=== PATIENT | female | born 1985 | race Two or more races ===

== ENCOUNTER 2020-04-28 16:06 | Outpatient (REF) | payer MEDICAID, SELFPAY ==
[2020-04-29 09:26] LABS: CT PCR NOT DETECTED (Not Detect.); NG PCR NOT DETECTED (Not Detect.)
[2020-04-29 10:34] LABS: BV Int Neg Control Negative (Negative); BV Int Pos Control Positive (Positive)
[2020-05-04 18:17] LABS: HPV mRNA E6/E7 rflx Not Detected (Not Detected)
== END 2020-04-28 16:07 | disposition home or self-care (01) ==
LOC: HO.LAB 16:06
PROVIDERS: PCP Nurse Practitioner Family; Referring Provider Nurse Practitioner Family; Visit Provider Advanced Practice Midwife
DX: Z01.419 Encounter for gynecological examination (general) (routine) without abnormal findings (principal); Z20.2 Contact with and (suspected) exposure to infections with a predominantly sexual mode of transmission; R10.2 Pelvic and perineal pain
CPT/HCPCS: 87480; 87491; 87510; 87591; 87624; 87625; 87660; 88142

== ENCOUNTER 2020-05-09 13:54 | Outpatient (REF) | payer MEDICAID, SELFPAY ==
--- NOTE | 2020-05-09 13:57 | US_ITS ---
EXAMINATION: PELVIC ULTRASOUND CLINICAL INFORMATION: Pelvic and peroneal pain COMPARISON: Previous pelvic ultrasound March 2016 TECHNIQUE: Transabdominal and transvaginal pelvic ultrasound was performed. Transvaginal exam was performed for better visualization of the uterus and ovaries. FINDINGS: The uterus is anteverted and measures 9.1 x 3.8 x 5.9 cm in dimension. No focal uterine lesion is seen. There is an IUD in the uterus in satisfactory position. The endometrium does not appear thickened measuring 0.3 cm. The right ovary measures 3 x 1.2 x 2.1 cm. There is a 1.3 x 1 x 1.7 cm thick-walled right ovarian cyst probably representing a corpus luteum. The left ovary measures 1.9 x 1.3 x 2.2 cm. There is a 1.4 x 0.7 x 1.1 cm paraovarian or adnexal simple cyst. There is a small amount of fluid in the pelvis. US/US transvaginal IMPRESSION: IUD in the uterus in satisfactory position. Small bilateral ovarian cysts. Small amount of fluid in the pelvis.
--- NOTE | 2020-05-09 13:57 | US_ITS ---
EXAMINATION: PELVIC ULTRASOUND CLINICAL INFORMATION: Pelvic and peroneal pain COMPARISON: Previous pelvic ultrasound March 2016 TECHNIQUE: Transabdominal and transvaginal pelvic ultrasound was performed. Transvaginal exam was performed for better visualization of the uterus and ovaries. FINDINGS: The uterus is anteverted and measures 9.1 x 3.8 x 5.9 cm in dimension. No focal uterine lesion is seen. There is an IUD in the uterus in satisfactory position. The endometrium does not appear thickened measuring 0.3 cm. The right ovary measures 3 x 1.2 x 2.1 cm. There is a 1.3 x 1 x 1.7 cm thick-walled right ovarian cyst probably representing a corpus luteum. The left ovary measures 1.9 x 1.3 x 2.2 cm. There is a 1.4 x 0.7 x 1.1 cm paraovarian or adnexal simple cyst. There is a small amount of fluid in the pelvis. US/US pelvic complete IMPRESSION: IUD in the uterus in satisfactory position. Small bilateral ovarian cysts. Small amount of fluid in the pelvis.
== END 2020-05-09 13:55 | disposition home or self-care (01) ==
LOC: HO.US 13:54
PROVIDERS: PCP Nurse Practitioner Family; Visit Provider Advanced Practice Midwife
DX: R10.2 Pelvic and perineal pain (principal)
CPT/HCPCS: 76830; 76856

== ENCOUNTER → 2020-05-12 12:47 | Outpatient (BNVA) | payer MEDICAID, SELFPAY | PROVIDERS: PCP Nurse Practitioner Family; Visit Provider Advanced Practice Midwife | DX: Z76.89 Persons encountering health services in other specified circumstances (principal) ==

== ENCOUNTER → 2021-06-29 10:50 | Outpatient (BNVA) | payer MEDICAID, SELFPAY | PROVIDERS: Visit Provider Surgery | DX: K60.2 Anal fissure, unspecified (principal); K64.4 Residual hemorrhoidal skin tags | CPT/HCPCS: 99202 ==

== ENCOUNTER 2021-07-28 09:28 | Day surgery (SDC) | payer MEDICAID, SELFPAY ==
[2021-07-24 10:58] VITALS: BMI 38.7
--- NOTE | 2021-07-26 12:35 | HO.ANESPROP2 ---
Documented by User: Sue Harman NP 07/26/21 12:35 HPI - Anesthesia Eval Consult details Narrative: 36yo F for EUA, Lateral Internal Sphincterotomy, Possible Hemorrhoidectomy [facility] Active Problems Active Problems: All Active Problems (Updated 07/24/21 @ 10:57 by Gabbi Solis, RN) Pelvic pain (Acute) Well woman exam with routine gynecological exam (Acute) Potential exposure to STD (Acute) Ovarian cyst (Acute) External hemorrhoids (Acute) Anal fissure (Acute) Obesity (Acute) Past Medical History Medical History (Updated 07/24/21 @ 10:57 by Gabbi Solis RN) Anal fissure External hemorrhoids History of depression History of gestational diabetes Obesity Family History Family History Father Poliazra Colon cancer Surgical History Surgical History (Updated 07/24/21 @ 10:57 by Gabbi Solis RN) History of surgery Hx of colonoscopy Social History Social History Alcohol intake: never Patient Tobacco Use Status: Former Tobacco user Quit Date: age 21 Patient Interested in Nicotine Replacement: No Use of substances other than those prescribed or required for medical reasons: No Are you DNR?: No Advance Directives: No Advance Directives Information Provided: Yes Gender identity: Female Meds Allergies Allergy/AdvReac Type Severity Reaction Status Date / Time No Known Allergies Allergy Unknown Verified 07/24/21 10:57 Home Medications Medication Instructions Recorded Confirmed Last Taken Type No Known Home Meds 05/12/20 07/24/21 Unknown History Exam Exam Date and Time: July 26, 2021 1235 Height,Weight and Vital Signs: Height 5 ft 4 in Weight 102.512 kg Assessment and Plan Assessment Anesthesia Assessment: Chart Reviewed Documented by User: Yvrose Casper MD 07/28/21 10:02 [facility] Past Medical History Medical History (Updated 07/24/21 @ 10:57 by Gabbi Solis RN) Anal fissure External hemorrhoids History of depression History of gestational diabetes Obesity Family History Family History Father Polio Colon cancer Family history of problems with anesthesia: No Surgical History Surgical History (Updated 07/24/21 @ 10:57 by Gabbi Solis RN) History of surgery Hx of colonoscopy History of Problems with Anesthesia: No Social History Social History Alcohol intake: never Patient Tobacco Use Status: Former Tobacco user Quit Date: age 21 Patient Interested in Nicotine Replacement: No Use of substances other than those prescribed or required for medical reasons: No Are you DNR?: No Advance Directives: No Advance Directives Information Provided: Yes Gender identity: Female Meds Allergies Allergy/AdvReac Type Severity Reaction Status Date / Time No Known Allergies Allergy Unknown Verified 07/24/21 10:57 Home Medications Medication Instructions Recorded Confirmed Last Taken Type No Known Home Meds 05/12/20 07/24/21 Unknown History Exam Airway Mallampati Class: II (Caps lateral) TM Dist: >3cm Neck ROM: Full Heart: rrr Lungs: cta Assessment and Plan Assessment Anesthesia Assessment: Anesthesia Plan Discussed and Chart Reviewed Final Anesthetic Review Family History of Problems with Anesthesia: No History of Problems with Anesthesia: No NPO: Yes ASA Class: II Final Preanesthetic Review: No Changes in Pt Med Stat, Meds/Allgs Chart Reviewed and Consent Obtained/Reviewed Patient Risk: Intermediate Procedure Risk: Intermediate Anesthetic Plan Anesthetic Plan: GA Disposition: Standard PACU
[2021-07-28] VITALS (11 sets, daily range): BP systolic 115–147; BP diastolic 57–82; PULSE 53–122; RESP 16–20; TEMP 36.3–36.6; O2SAT 95–100
--- NOTE | 2021-07-28 10:06 | MHC.SHP ---
Pre-Procedural Eval Section A Date of Service: 07/28/21 The patient is an INPATIENT: No Changes since office visit: No Cold of Flu in the past 2 weeks, No New Medical Problems, No Changes in Medication and No Patient answered all questions The History & Physical has been completed within 30 days and I have reviewed it.: Yes Section B Chief Complaint: Anal Fissure Allergies: Allergies Allergy/AdvReac Type Severity Reaction Status Date / Time No Known Allergies Allergy Unknown Verified 07/24/21 10:57 Plan I have reviewed the history and physical and performed a pertinent physical examination on my patient. No changes have occurred unless specified.
--- NOTE | 2021-07-28 10:32 | PC.NURSE ---
Patient unable to urinate for HCG preg test. Patient denies any chance of , I just got off my period Anesthesia at bedside explaining risks to proceeding with procedure under anesthesia to unborn fetus should she be . Patient fully understands and wants to proceed with procedure under general anesthesia without results of urine HCG preg- patient and Dr Casper signed consent for understanding of risks.
--- NOTE | 2021-07-28 11:25 | P.OP_ITS ---
Operative Note Operative Note Date of Service: 07/28/21 Narrative: Preop diagnosis: Anal fissure, external hemorrhoids Postop diagnosis: Anal fissure, large external hemorrhoids Procedure: Exam under anesthesia, left lateral internal sphincterotomy, hemorrhoidectomy x1 Surgeon: Dangelo Engel MD The patient is a 36 year old female who had been seen in the office because of chronic anal pain. Overall clinical exam suggested a posterior midline fissure but she did have large bulky external hemorrhoids as well . In view of her chronic and severe symptoms, I told her that would be best to proceed with exam under anesthesia, sphincterotomy, and possibly hemorrhoidectomy. She understood the technique of the procedure and was aware of the risks, benefits, and alternatives. She was brought to the operating room placed in prone rodney-knife position under general anesthesia via endotracheal tube. The buttocks were retracted with wide tape laterally. The perianal area was prepped draped usual sterile fashion. A surgical time-out was done. Area was infiltrated with lidocaine 1% Examination of the anal orifice revealed all large external hemorrhoidal column on the right posterior. By retraction of the anal canal I was able to visualize an anal fissure in the posterior midline and the distal anoderm . Inserted abuse Larose retractor and examined the anal canal circumferentially. She did have other smaller mixed internal and external hemorrhoidal columns. There were no lesions seen. In view of the presence of anal fissure, proceeded to do a sphincterotomy. I made a very short incision at the intersphincteric groove using a blade 15. This carried down with blunt dissection with hemostat to identify the external sphincter muscle. I isolated this and identified the intersphincteric plane. By protecting external sphincter, I proceeded to then divide the internal sphincter down to the level of the dentate line using electrocautery. I closed the incision with a running chromic 3-0 stitch. Additional hemostatic deoftc-bb-hlwze sutures were placed for the incision in view of some oozing I then proceeded to excise the large external hemorrhoid on the posterior aspect on the left. I made a wjereb-hr-[id number] stitch at the apex of this hemorrhoidal column at the anoderm with a chromic 3-0. Made an incision or the hemorrhoidal column the perianal skin using blade 15. And excised this hemorrhoidal column above the plane of sphincters using Metzenbaum scissors. I closed the incision with a running chromic 3-0 stitch. I had to place additional hemostatic sutures along the incision because of oozing. I observed for hemostasis. I infiltrated the perianal area with Marcaine 0.5% for postop analgesia. There was some oozing areas on the incision so I had to place additional hemostatic sutures. Once hemostasis was ensured, proceeded to position a rolled Gelfoam packing into the anal canal for additional hemostasis postoperatively . The procedure was then completed. The patient tolerated procedure well. There were no complication noted. Initial and finalcounts of sponges and instruments were correct. Estimated blood loss was about 50 cc The patient is extubated without difficulty and transferred to recovery room w ith stable vital signs.
[2021-07-28] MEDS: fentaNYL citrate/PF 100 MCG/2 ML VIAL 50 MCG IVPUSH ×2 (11:37→11:44)
[2021-07-28] MEDS: oxyCODONE HCl Immed Release 5 MG TABLET 10 MG PO (11:37)
== END 2021-07-28 13:05 | disposition home or self-care (01) ==
PROVIDERS: Visit Provider Surgery
PROC: (CPT 46080; principal; 2021-07-28 11:00)
DX: K60.2 Anal fissure, unspecified (principal); K64.4 Residual hemorrhoidal skin tags
CPT/HCPCS: 46080; 88304; J1100; J1885; J2250; J2405; J2550; J3010

== ENCOUNTER → 2022-05-17 12:59 | Outpatient (BNVA) | payer MEDICAID, SELFPAY | PROVIDERS: PCP Registered Nurse; Visit Provider Advanced Practice Midwife | DX: Z87.42 Personal history of other diseases of the female genital tract (principal); Z97.5 Presence of (intrauterine) contraceptive device | CPT/HCPCS: 99202 ==

== ENCOUNTER 2022-06-21 14:03 | Outpatient (REF) | payer MEDICAID, SELFPAY ==
--- NOTE | ~2022-06-21 | US_ITS ---
EXAMINATION: US PELVIS CLINICAL INFORMATION: Abnormal Pap smear and bleeding COMPARISON: Previous exam May 2020 TECHNIQUE: Ultrasound of the pelvis is performed using both transabdominal and transvaginal transducers along with Doppler. Transvaginal imaging is performed due to inadequate visualization transabdominally. FINDINGS: The uterus is anteverted and measures 6.9 x 3.7 x 6.1 cm in dimension. There is an IUD in the uterus in satisfactory position. Endometrial thickness is normal measuring 0.3 cm. No focal uterine lesion. The ovaries are normal. The right ovary measures 1.9 x 1.4 x 1.1 cm. The left ovary measures 2.1 x 1.2 x 0.8 cm. There is no fluid in the pelvis. US/US pelvic and transvaginal IMPRESSION: IUD in the uterus in satisfactory position. Otherwise unremarkable exam.
== END 2022-06-21 14:04 | disposition home or self-care (01) ==
LOC: HO.US 14:03
PROVIDERS: Visit Provider Advanced Practice Midwife
DX: Z97.5 Presence of (intrauterine) contraceptive device (principal); Z87.42 Personal history of other diseases of the female genital tract
CPT/HCPCS: 76830; 76856

== ENCOUNTER → 2022-06-29 14:35 | Outpatient (BNVA) | payer MEDICAID, SELFPAY | PROVIDERS: PCP Registered Nurse; Visit Provider Internal Medicine | DX: Q14.1 Congenital malformation of retina (principal); Z80.0 Family history of malignant neoplasm of digestive organs | CPT/HCPCS: 99202 ==

== ENCOUNTER → 2022-07-05 08:59 | Outpatient (BNVA) | payer MEDICAID, SELFPAY | PROVIDERS: PCP Registered Nurse; Visit Provider Advanced Practice Midwife | DX: Z87.42 Personal history of other diseases of the female genital tract (principal); Z97.5 Presence of (intrauterine) contraceptive device | CPT/HCPCS: 99212 ==

== ENCOUNTER 2022-11-23 06:59 | Day surgery (SDC) | payer MEDICAID, SELFPAY ==
[2022-11-21 08:41] VITALS: BMI 36.4
--- NOTE | 2022-11-22 11:47 | HO.ANESPROP2 ---
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) Family history of colon cancer (Acute) History of surgery (Acute) External hemorrhoids (Acute) Anal fissure (Acute) Obesity (Acute) Past Medical History Medical History (Updated 07/05/22 @ 09:49 by Alyssa Wayne CNM) Anal fissure External hemorrhoids History of depression History of gestational diabetes Obesity Family History Family History Father Poliazra Colon cancer Family history of problems with anesthesia: No Surgical History Surgical History (Updated 11/21/22 @ 08:39 by Jessica Woo RN) History of surgery Hx of colonoscopy Hx of hemorrhoidectomy History of Problems with Anesthesia: No Social History Social History Alcohol intake: never Patient Tobacco Use Status: Former Tobacco user Quit Date: age 21 Tobacco use type: Cigarette Use of substances other than those prescribed or required for medical reasons: No Are you DNR?: No Advance Directives: No Advance Directives Information Provided: Yes Gender identity: Female Meds Allergies Allergy/AdvReac Type Severity Reaction Status Date / Time No Known Allergies Allergy Unknown Verified 11/23/22 07:10 Home Medications Medication Instructions Recorded Confirmed Last Taken Type copper 380 square mm intrauterine intrauterine 07/05/22 07/05/22 Unknown History device (ParaGard T 380A) Exam Exam Date and Time: November 22, 2022 1147 Height,Weight and Vital Signs: Height 5 ft 4 in Weight 96.162 kg Assessment and Plan Assessment Anesthesia Assessment: Chart Reviewed Final Anesthetic Review Family History of Problems with Anesthesia: No History of Problems with Anesthesia: No Documented by User: Joy Sinclair MD 11/23/22 08:08 [facility] Past Medical History Medical History (Updated 07/05/22 @ 09:49 by Alyssa Wayne CNM) Anal fissure External hemorrhoids History of depression History of gestational diabetes Obesity Family History Family History Father Polio Colon cancer Surgical History Surgical History (Updated 11/21/22 @ 08:39 by Jessica Woo RN) History of surgery Hx of colonoscopy Hx of hemorrhoidectomy Social History Social History Alcohol intake: never Patient Tobacco Use Status: Former Tobacco user Quit Date: age 21 Tobacco use type: Cigarette Use of substances other than those prescribed or required for medical reasons: No Are you DNR?: No Advance Directives: No Advance Directives Information Provided: Yes Gender identity: Female Meds Allergies Allergy/AdvReac Type Severity Reaction Status Date / Time No Known Allergies Allergy Unknown Verified 11/23/22 07:10 Home Medications Medication Instructions Recorded Confirmed Last Taken Type copper 380 square mm intrauterine intrauterine 07/05/22 07/05/22 Unknown History device (ParaGard T 380A) Exam Airway Mallampati Class: II TM Dist: >3cm Neck ROM: Full Heart: rrr Lungs: cta Assessment and Plan Assessment Anesthesia Assessment: Anesthesia Plan Discussed Final Anesthetic Review NPO: Yes ASA Class: II Final Preanesthetic Review: No Changes in Pt Med Stat, Meds/Allgs Chart Reviewed, Consent Obtained/Reviewed and Anes Risks/Benef Reviewed Patient Risk: Low Procedure Risk: Low Anesthetic Plan Anesthetic Plan: MAC: Disposition: Standard PACU
[2022-11-23 07:13] VITALS: BMI 36.4
[2022-11-23 07:16] VITALS: BP 130/69; PULSE 52; RESP 16; TEMP 36.6; O2SAT 100
[2022-11-23] MEDS: Lactated Ringers 1,000 ML 100 ML IVCONT (07:22)
[2022-11-23 07:47] LABS: UPreg QC Valid YES; Urine Pregnancy NEGATIVE (NEGATIVE)
--- NOTE | 2022-11-23 08:45 | MHC.SHP ---
Pre-Procedural Eval Section A Date of Service: 11/23/22 Section B Chief Complaint: Family history of malignant neoplasm of digestive Details of Present Illness: Medical History Anal fissure External hemorrhoids History of depression History of gestational diabetes Obesity Surgical History History of surgery Hx of colonoscopy Family History Father Polio Colon cancer Present Medications: see Short Stay Collaborative assessment Allergies: Allergies Allergy/AdvReac Type Severity Reaction Status Date / Time No Known Allergies Allergy Unknown Verified 11/23/22 07:10 Review of Systems Review of Systems Comment: 10 point ROS negative except as above Exam Exam Comment: Gen appear: No acute distress HEENT: no icterus Chest: No overt resp distress Abd: soft, nontender, nondistended Psych: Stable affect, answering questions appropriately Neuro: A/Ox3 noted to move all extremities spontaneously Ext: no peripheral edema Plan Diagnosis/Plan: Unchanged I have reviewed the history and physical and performed a pertinent physical examination on my patient. No changes have occurred unless specified. Time Spent With Patient Time: Total time managing care of this patient today ____ minutes.
--- NOTE | 2022-11-23 08:46 | P.OP_ITS ---
Operative Note Operative Note Date of Service: 11/23/22 Narrative: Procedure: Esophagogastroduodenoscopy and colonoscopy Endoscopist: Paris Devine MD Indication: R/o polyposis syndrome, fam hx of CRC Anesthesia Provider: Dr Joy Sinclair Anesthesia Type: MAC ? Instrument: Olympus GIF-H190 and PCF-190L EGD Procedure:?? The procedure, indications, preparation and potential complications were reviewed with the patient, who indicated understanding and gave written informed consent to proceed. A physical exam was performed. A distal attachment cap was affixed to the tip of the scope and the endoscope was introduced through the mouth, and advanced to the second part of duodenum. The mucosa was carefully examined on slow withdrawal of the endoscope. The patient became hypoxic and difficult to sedate as the duodenum was being examine and therefore decision was made to complete the upper endoscopy after the colonsocopy. EGD Findings:? * Esophagus:? Normal mucosa noted in the entire esophagus. The Z line was at 37 cm. * Stomach:? Normal mucosa was noted in the stomach. * Duodenum:? Erythema and congestion was noted in the duodenal bulb compatible with peptic duodenitis. Cold forceps biopsies were taken for histology. Normal mucosa was noted in remaining examined duodenum. The major papilla was also examined and appeared normal. Colonoscopy Procedure:? The patient was then turned for the colonoscopy. A digital rectal exam was performed which was normal.? A distal attachment cap was affixed to the tip of the scope and the colonoscope was then inserted through the anus and advanced through the colon to the cecum at 75 cm,and terminal ileum.? Appendiceal orifice and ileocecal valve were identified.? Mucosa was carefully examined under high definition white light as the instrument was slowly withdrawn in a retrograde panoramic fashion. Retroflexion was performed in rectum. The procedure was not difficult. There were no immediate obvious complications. The quality of the prep was BBPS: 2+3+2 = adequate Withdrawal time 8 minutes. Limitations: No limitations.? Findings: Mucosa: Normal to cecum and terminal ileum. Protruding lesions: * Medium external hemorrhoids without stigmata of recent bleeding. Impression: 1. Normal esophagus 2. Normal stomach 3. Peptic duodenitis (biopsy) 4. Normal colon and terminal ileum mucosa 5. External hemorrhoids Recommendations:?? * Follow biopsy results. Our office will call or send a letter with results within 7-10 days. * Avoid NSAIDs and smoking. * Repeat colonoscopy in 5 years due to family hx of CRC * Follow up in GI office as scheduled. Above has been reviewed with the patient. Educational hand outs were provided at discharge.
[2022-11-23 09:50] VITALS: BP 114/77; PULSE 97; RESP 17; TEMP 36.6; O2SAT 98
[2022-11-23 10:05] VITALS: BP 141/62; PULSE 74; RESP 18; TEMP 36.4; O2SAT 98
== END 2022-11-23 10:51 | disposition home or self-care (01) ==
PROVIDERS: Nurse Practitioner; PCP Registered Nurse; Visit Provider Internal Medicine
PROC: (CPT 45378; principal; 2022-11-23 08:30)
DX: Z12.11 Encounter for screening for malignant neoplasm of colon (principal); Z80.0 Family history of malignant neoplasm of digestive organs; K29.80 Duodenitis without bleeding; K64.4 Residual hemorrhoidal skin tags; K60.2 Anal fissure, unspecified; Q14.1 Congenital malformation of retina; E66.9 Obesity, unspecified; Z68.36 Body mass index [BMI] 36.0-36.9, adult; Z98.890 Other specified postprocedural states; Z87.891 Personal history of nicotine dependence
CPT/HCPCS: 45378; 43239; 81025; 88305; J1100; J2250

== ENCOUNTER 2023-02-27 12:46 | Outpatient (REF) | payer MEDICAID, SELFPAY ==
--- NOTE | ~2023-02-27 | XR_ITS ---
EXAMINATION: XR HAND, RIGHT CLINICAL INFORMATION: Second digit trauma. COMPARISON: None available. TECHNIQUE: PA, lateral, and oblique views of the right hand. FINDINGS: There is no acute fracture or dislocation. The joint spaces are unremarkable. The carpal bones are normally aligned. The distal radius and ulna are intact. Mild soft tissue swelling is seen in the second digit. No radiopaque foreign body. XR/XR hand RT min 3V IMPRESSION: Mild soft tissue swelling in the second digit without acute underlying osseous abnormality. No radiopaque foreign body.
== END 2023-02-27 12:47 | disposition home or self-care (01) ==
LOC: HO.HHCX 12:46
PROVIDERS: Visit Provider Internal Medicine Geriatric Medicine
DX: L03.011 Cellulitis of right finger (principal); M20.001 Unspecified deformity of right finger(s)
CPT/HCPCS: 73130

== ENCOUNTER 2023-03-27 10:44 | Outpatient (REF) | payer MEDICAID, SELFPAY ==
[2023-03-29 11:39] LABS: TS Negative Control Passed; TS Panel A 0; TS Panel B 0; TS Positive Control Passed; TSpotTB Negative (Negative)
== END 2023-03-27 10:45 | disposition home or self-care (01) ==
LOC: HO.HHCL 10:44
PROVIDERS: Visit Provider Registered Nurse
DX: Z00.00 Encounter for general adult medical examination without abnormal findings (principal); Z11.1 Encounter for screening for respiratory tuberculosis
CPT/HCPCS: 36415; 86481

== ENCOUNTER 2023-04-29 11:49 | Outpatient (REF) | payer MEDICAID, SELFPAY ==
[2023-04-29 14:07] LABS: MANUAL DIFF FLAG NO
[2023-04-29 14:16] LABS: Basophils Absolute Auto 0.1 X10*3/uL (0.0-0.2); Eosinophils Absolute Auto 0.2 X10*3/uL (0.0-0.4); Eosinophils Percent Auto 2.9 % (0-4); Hematocrit 36.5 % (37.0-47.0); Imm Gran Abs Auto 0.01 X10*3/uL (0.00-0.03); Imm Gran Pct Auto 0.2 % (0.0-0.4); Lymphocytes Absolute Auto 2.3 X10*3/uL (1.2-4.9); Lymphocytes Percent Auto 39.2 % (20-40); Mean Corpuscular HGB Conc 32.9 g/dl (31.0-35.0); Mean Corpuscular Hemoglobin 27.7 pg (27.0-33.0); Mean Corpuscular Volume 84.3 fL (80.0-98.0); Monocytes Absolute Auto 0.3 X10*3/uL (0.1-1.2); Monocytes Percent Auto 4.6 % (2-11); Neutrophils Percent Auto 52.1 % (45-73); Platelet Count 245 X10*3/uL (160-400); Red Blood Count 4.33 X10*6/uL (4.20-5.50); Red Cell Distribution Width 13.8 % (11.0-16.0); White Blood Count 5.8 X10*3/uL (4.8-10.8)
[2023-04-29 14:21] LABS: Estimated Average Glucose 100 mg/dL; Hemoglobin A1c % 5.1 % (<6.0)
[2023-04-29 14:45] LABS: Alanine Aminotransferase 13 U/L (0-31); Albumin Level 4.2 g/dL (3.5-5.0); Alkaline Phosphatase 70 U/L (39-117); Anion Gap 15 (12-20); Aspartate Amino Transferase 15 U/L (5-31); Bilirubin Total 0.3 mg/dL (0.0-1.0); Blood Urea Nitrogen 12 mg/dL (9-16); Calcium 9.5 mg/dL (8.4-10.2); Carbon Dioxide 23 mmol/L (22-29); Chloride 107 mmol/L (96-108); Cholesterol 249 mg/dL (<200); Estimated Glomerular Filt Rate > 60; Glucose Fasting 83 mg/dL (60-99); HDL Cholesterol 48 mg/dL (>40); LDL Cholesterol Calculated 185 mg/dL (<100); Potassium 3.8 mmol/L (3.3-5.1); Sodium 141 mmol/L (135-145); Total Protein 7.4 g/dL (6.5-8.0); Triglycerides 84 mg/dL (<150)
[2023-04-29 14:51] LABS: TSH reflex Free T4 0.92 uIU/mL (0.32-4.0)
[2023-04-29 15:59] LABS: CT PCR NOT DETECTED (Not Detect.); NG PCR NOT DETECTED (Not Detect.)
[2023-04-30 08:16] LABS: HBc Num1 0.16 S/CO (0.00-0.79); HBsAGNum1 0.34 S/CO (0.00-0.99); HIV AB/AG Nonreactive (Nonreactive); HIV Num 1 0.04 S/CO (0.00-0.99); Hepatitis B Core Antibody Nonreactive (Nonreactive); Hepatitis B Surface Antigen Negative (Negative); ~HepC Num1 0.08 S/CO (0.00-0.79); ~Hepatitis B Surface Antibody REACTIVE (Nonreactive); ~Hepatitis C Antibody Nonreactive (Nonreactive)
[2023-05-01 05:09] LABS: Mumps Virus IgG Antibody <9.00 AU/mL; Rubella IgG Antibody <0.90 Index
[2023-05-01 08:39] LABS: RPR Rapid Plasma Reagin NON-REACTIVE (NON-REACTIVE)
== END 2023-04-29 11:50 | disposition home or self-care (01) ==
LOC: HO.CHCLDS 11:49
PROVIDERS: Visit Provider Registered Nurse
DX: Z00.00 Encounter for general adult medical examination without abnormal findings (principal)
CPT/HCPCS: 0353U; 80053; 80061; 83036; 84443; 85025; 86592; 86704; 86706; 86735; 86762; 86765; 86787; 86803; 87340; 87389

== ENCOUNTER 2024-09-02 10:10 | Outpatient (REF) | payer OTHER, SELFPAY ==
[2024-09-02 11:30] LABS: MANUAL DIFF FLAG NO
[2024-09-02 11:52] LABS: Basophils Absolute Auto 0.1 X10*3/uL (0.0-0.2); Basophils Percent Auto 0.7 % (0-2); Eosinophils Absolute Auto 0.2 X10*3/uL (0.0-0.4); Eosinophils Percent Auto 2.7 % (0-4); Hematocrit 38.3 % (37.0-47.0); Hemoglobin 12.4 g/dl (12.0-16.0); Imm Gran Abs Auto 0.01 X10*3/uL (0.00-0.03); Imm Gran Pct Auto 0.1 % (0.0-0.4); Lymphocytes Absolute Auto 2.6 X10*3/uL (1.2-4.9); Lymphocytes Percent Auto 38.9 % (20-40); Mean Corpuscular HGB Conc 32.4 g/dl (31.0-35.0); Mean Corpuscular Hemoglobin 27.6 pg (27.0-33.0); Mean Corpuscular Volume 85.3 fL (80.0-98.0); Mean Platelet Volume 11.2 fL (9.4-12.3); Monocytes Absolute Auto 0.3 X10*3/uL (0.1-1.2); Monocytes Percent Auto 5.1 % (2-11); Neutrophils Absolute Auto 3.5 x10*3/uL (2.0-8.3); Neutrophils Percent Auto 52.5 % (45-73); Platelet Count 239 X10*3/uL (160-400); Red Blood Count 4.49 X10*6/uL (4.20-5.50); Red Cell Distribution Width 13.8 % (11.0-16.0); White Blood Count 6.7 X10*3/uL (4.8-10.8)
--- OUTSIDE RECORDS SUMMARY | 2024-09-02 11:59 | XMS_ITS | Clinical Summary ---
Author Organization [employer] Address [address] [place] [address] 7[address] [place] [address] Care Team Providers Care Election Judge Name Role Phone Alexus Stoner VIDYA Primary Care Provider [phone] Allergies No known active allergies Medications Acetaminophen Extra Strength 500 MG tablet Take 2 tablets by mouth every 6 (six) hours if needed. 3 08/21/19 25 Discontinu ed(Therapy completed) loratadine (Claritin) 10 MG tablet Take 1 tablet (10 mg) by mouth in the morning. 30 tablet 3 08/21/19 25 Discontinu ed(Therapy completed) fluticasone (Flonase Sensimist) 27.5 MCG/SPRAY nasal spray Administer 2 sprays into each nostril if needed each day for rhinitis. 10 g 2 3 08/21/19 25 Discontinu ed(Therapy completed) pseudoephedrin e ER (Sudafed 12 Hour) 120 MG 12 hr tablet Take 1 tablet (120 mg) by mouth if needed in the morning and at bedtime for congestion. Do not crush, chew, or split. 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 Father also w/ hx of colon CA. Completed colonoscopy October 2022. Next colonoscopy due: October 2027. Routine health maintenance 10/16/2022 Overview (08/23/2024): ROUTINE SCREENING: Breast CA: Routine mammograms starting at 41 y/o Pap: following with [facility]. Last pap HPV Negative 04/28/2020. Previous HPV neg, NILM 04/11/2017. Colonoscopy: 11/23/2022 at [facility] (+) fam hx. Plan: repeat 5 years (October 2027) due to family history. -Optometry: established with [facility] -Last PE: 08/21/24 Resolved Problems Problem Noted Date Diagnosed Date Resolved Date Obesity 11/16/2011 08/21/2024 Encounters Date Type Department Care Team Description 08/21/2024 2:45 PM EST Office Visit [facility] [address] [place] [address] Alexus Stoner FNP Encounter for routine history and physical examination of adult (Primary Dx); Routine health maintenance; Other hyperlipidemia; Congenital hypertrophy of retinal pigment epithelium; Epidermal inclusion cyst; Dietary counseling; Exercise counseling 08/21/2024 Travel 08/20/2024 Telephone [facility] [address] [place] [address] Vivian Dennison MA Chart Prep 08/07/2024 Patient Outreach [facility] [address] [place], [place] [id number] Alexus Stoner FNP Pre-visit Planning (Pre visit planning unable to LVM.) from Last 3 Months Immunizations Name Administration Dates Next Due DTaP 05/21/2012, 0,08/07/1988,1986,1986,1986 Hep B, Adolescent or Pediatric 08/03/2004,1998,12/28/1998 Hep B, adult 06/20/1999 Hib (HbOC) 05/04/1988 IPV 08/07/1988, 7,1986,1986 Influenza Injectable Quadriv alant Preservative Free IIV4 MDCK 04/03/2022 Influenza injectable quadriv alent IIV4 with preservative 03/26/2018,04/22/2017 Influenza injectable quadriv alent preservative free 03/27/2021,08/27/2019,04/13/2015 Influenza, IIV3, injectable 07/22/2024, 5 MMR 04/15/2014,05/14/1990,06/29/1987 OPV 05/14/1990 TD (adult), 2 Lf tetanus tox oid, preservative free, adsorbed 12/28/1998 Tdap 04/29/2023,12/01/2012 Family History Medical History Relation Name Comments Colon cancer Father Alzheimer's disease Maternal Grandmother Hyperlipidemia Mother Alzheimer's disease Paternal Grandmother Relation Name Status Comments Father Maternal Grandmother Mother Paternal Grandmother Social History Tobacco Use Types Packs/Day Years Used Date Smoking Tobacco: Never Smokeless Tobacco: Never Tobacco Cessation:Counseling Given: Not Answered Alcohol Use Standard Drinks/Week Comments Never 0 (1 standard drink = 0.6 oz pur e alcohol) Alcohol Answer Date Recorded Frequency of Alcohol Consumption Not on file 04/29/2023 Average Number of Drinks Not on file 023 Frequency of Binge Drinking Not on file 04/02 Score 0 04/29/2023 Depression Answer Date Recorded Patient Health Questionnaire-9 Score 1 08/21/2024 Patient Health Questionnaire-9 Score 1 08/21/2024 Last PHQ-9: Questionnaire Data Not on file 0 08/21/2024 Housing Stability Answer Date Recorded What is your housing situation today? I have sherin garcia 08/21/[address] you li ve. Do you have problems with any of the following? None of the above 08/21/2024 Food Insecurity Answer Date Recorded Within the past 12 months, y ou worried that your food would run out before you got money to buy more: Never True 08/21/2024 Within the past 12 months,th e food you bought just didn't last and you didn't have enough money to get more: Never True Transportation Answer Date Recorded In the past 12 months, has l ack of transportation kept you from medical appts, meetings, work or from getting things needed for daily living? No 08/21/2024 Utilities Answer Date Recorded In the past 12 months, has t he electric, gas, oil or water company threatened to shut off services in your home? No 08/21/2024 Depression Answer Date Recorded Patient Health Questionnaire-2 Score 0 08/21/2024 Internet Access Answer Date Recorded Internet Access Q1 Yes 08/21/2024 Internet Access Q2 Not on file 08/21/2024 Comments Unknown Sex and Gender Information Value Date Recorded Sex Assigned at Female 04/30/2022 10:15 AM EDT Legal Sex Female 10:15 AM EDT Gender Identity Female 04/30/2022 10:15 AM EDT Sexual Orientation Straight 04/30/2022 10 :15 AM EDT Last Filed Vital Signs Vital Sign Reading Time Taken Comments Blood Pressure 112/60 08/21/2024 3:21 PM EST Pulse 76 08/21/2024 3:21 PM EST Temperature 36.7 ??C (98 ??F) 08/21/2024 3:21 PM EST Respiratory Rate 20 08/21/2024 3:21 PM EST Oxygen Saturation 98% 06/19/2023 11:33 AM EST Inhaled Oxygen Concentration - - Weight 104 kg (229 lb 4 oz) 08/21/2024 3:[address] Height 162 cm (5' 3.78 ) 08/21/2024 3:21 PM EST Body Mass Index 39.62 08/21/2024 3:21 PM EST Plan of Treatment Health Maintenance Due Date Last Done Comments Pap Smear 04/11/2020 04/11/2017 Cervical Cancer Screening 04/28/2025 HPV/Cotest 04/28/2025 04/28/2020, 04/28/2020 Alcohol/Substance Use Screening 08/21/2025 08/21/2024 Depression Screening 08/21/2025 08/21/2024, 08/21/19 SDOH Screening 08/21/2025 08/21/2024 COVID-19 Vaccine ( season) 2025 10/13/2022, 08/26/2021, 09/06/2020, Additional history exists Postponed from 03/01/2024 (Patient Refused) Family Planning (PISQ) 08/23/2025 08/23/2024 Tobacco Screening 08/23/2025 08/23/2024 DTaP/Tdap/Td Vaccines (9 - Td or Tdap) 04/29/2033 04/29/2023, 12/01/2012, 05/21/2012, Additional history exists Zoster Vaccines (1 of 2) 02/27/2036 RSV Patients and Patients Aged 60 years or older (1 - 1-dose 75+ series) 2061 HIB Vaccines Completed 05/04/1988 IPV Vaccines Completed 05/14/1990, 12/1988, 06/29/1987, Additional history exists Hepatitis B Vaccines Completed 08/03/2004, 06/20/1999, 02/13/1999, Additional history exists HIV Screening Completed 04/29/2023 Hepatitis C Screening Completed 04/29/2023 Influenza Vaccine Completed 07/22/2024, , 03/27/2021, Additional history exists HPV Vaccines Aged Out No longer eligi ble based on patient's age to complete this topic Hepatitis A Vaccines Aged Out No long er eligible based on patient's age to complete this topic Meningococcal Vaccine Aged Out No be jolie eligible based on patient's age to complete this topic Pneumococcal Vaccine: Pediatrics (0 to 5 Years) and At-Risk Patients (6 to 49) Years) Aged Out No longer eligible based on patient's age to complete this topic RSV under 20 months Aged Out No longe r eligible based on patient's age to complete this topic Rotavirus Vaccines Aged Out No longer eligible based on patient's age to complete this topic Procedures Procedure Name Priority Date/Time Associated Diagnosis Comments CBC WITH AUTO DIFFERENTIAL Routine 09/02/2024 10:14 AM EST Routine health maintenance HEPATITIS C AB W/REFL TO HCV RNA, QN, PCR Routine 04/29/2023 11:55 AM EDT HIV ANTIBODY/ANTIGEN ([place] [facility]) Routine 04/29/2023 11:55 AM EDT ZZZ HISTORICAL HPV E6/E7 RFLX POPPY 16 18/45 Routine 04/28/2020 4:59 PM EDT HM PAP/HPV Routine 04/11/2017 from Last 3 Months or Most Recently Relevant to Health Maintenance Results * CBC auto differential (09/02/2024 10:14 AM EST) White Blood Count 6.7 4.8 - 10.8 X10*3/uL [facility] Red Blood Count 4.49 4.20 - 5.50 X10*6/uL [facility] Hemoglobin 12.4 12.0 - 16.0 g/dl [facility] Hematocrit 38.3 37.0 - 47.0 % [facility] Mean Corpuscular Volume 85.3 80.0 - 98.0 fL [facility] Mean Corpuscular Hemoglobin 27.6 27.0 - 33.0 pg [facility] Mean Corpuscular HGB Conc 32.4 31.0 - 35.0 g/dl [facility] Red Cell Distribution Width 13.8 11.0 - 16.0 % [facility] Platelet Count 239 160 - 400 X10*3/uL [facility] Mean Platelet Volume 11.2 9.4 - 12.3 fL [facility] Neutrophils Percent Auto 52.5 45 - 73 % [facility] Imm Gran Pct Auto 0.1 0.0 - 0.4 % [facility] Lymphocytes Percent Auto 38.9 20 - 40 % [facility] Monocytes Percent Auto 5.1 2 - 11 % [facility] Eosinophils Percent Auto 2.7 0 - 4 % [facility] Basophils Percent Auto 0.7 0 - 2 % [facility] NRBC Pct Auto 0.0 0.0 - 0.2 /100WBC [facility] Neutrophils Absolute Auto 3.5 2.0 - 8.3 x10*3/uL [facility] Imm Gran Abs Auto 0.01 0.00 - 0.03 X10*3/uL [facility] Lymphocytes Absolute Auto 2.6 1.2 - 4.9 X10*3/uL [facility] Monocytes Absolute Auto 0.3 0.1 - 1.2 X10*3/uL [facility] Eosinophils Absolute Auto 0.2 0.0 - 0.4 X10*3/uL [facility] Basophils Absolute Auto 0.1 0.0 - 0.2 X10*3/uL [facility] NRBC Abs Auto 0.000 0.0 - 0.012 X10*3/uL [facility] Blood Venous blood specimen / Unknown 09/02/2024 10:14 AM EST 09/02/2024 11:25 AM EST us Alexus Stoner [facility] LAB BLOOD ORDERABLES Final Res ult [facility] [address] [place] [address] [phone] * HIV Ab/Ag ([facility]) (04/29/2023 11:55 AM EDT) Pathologist [facility] HIV AB/AG Nonreactive Nonreactive [facility] Comment:HIV-1 p24 Ag and/or HIV-1/HIV-2 Ab not detected.A test result that is nonreactive does not exclude thepossibility of exposure to or infection with HIV-1 and/orHIV-2. Nonreactive results in this assay for individualswith prior exposure to HIV-1 and/or HIV-2 may be due toantigen and antibody levels that are below the limit ofdetection of this assay.The [employer] HIV Ag/Ab Combo assay result andsupplemental assay results should be interpreted inconjunction with the patient's clinical presentation,history and other laboratory results. If the results areinconsistent with clinical evidence, additional testing issuggested to confirm the result. 04/29/2023 11:5 5 AM EDT 04/29/2023 2:07 PM EDT us Alexus Stoner JUNIOR AUTOMATION ENGINEER LAB BLOOD ORDERABLES Final Res ult Performing Organization Address [facility] Co de Phone Number [facility] [address] [place] [address] [phone] * Hepatitis C Antibody with Reflex to HCV, RNA, Quantitative, Real-Time PCR (04/29/2023 11:55 AM EDT) Hepatitis C Antibody Nonreactive Nonreactive [facility] Comment:Antibodies to HCV no t detected; does not exclude early acuteHCV infection. 04/29/2023 11:5 5 AM EDT 04/29/2023 2:07 PM EDT us Alexus Stoner JUNIOR AUTOMATION ENGINEER LAB BLOOD ORDERABLES Final Res ult Performing Organization Address [facility] Co de Phone Number [facility] [address] [place] [address] [phone] * HPV E6/E7 RFLX POPPY 16 18/45 (04/28/2020 4:59 PM EDT) HPV mRNA E6/E7 rflx Not Detected Not Detected [facility] Comment: This test was performed using the APTIMA HPV Assay ([employer] This assay detects E6/E7 viral messenger RNA (mRNA) from 14 high-risk HPV types (16,18,31,33,35,39,45,51,52,56,58,59,66,68). The analytical performance characteristics of this assay have been determined by [employer] The modifications have not been cleared or approved by the FDA. This assay has been validated pursuant to the CLIA regulations and is used for clinical purposes. THIS TEST WAS PERFORMED AT: [facility] [address] [place] [address] [address] [place], [place] ??[phone] ALY JIMENEZ MD 04/28/2020 4:59 PM EDT Historical Provider HISTORICAL/NON ORDERABLE LABS Final Result Performing Organization Address City/[facility]/ZIP Co de Phone Number [facility] [address] [place] [address], * Hm Pap Smear (04/11/2017) Pap smear NILM PAP HPV neg Historical Provider HEALTH MAINTENANCE Final Result from Last 3 Months or Most Recently Relevant to Health Maintenance [place] [address] [address] [place] [address] Care Teams Election Judge Relationship Specialty Start Date End Date Alexus Stoner FNP [address] [place] [address] PCP - General Family Medicine 12/11/21
--- OUTSIDE RECORDS SUMMARY | 2024-09-02 12:00 | XMS_ITS | Encounter Summary ---
Author Organization [employer] Address [address] [facility] [address] [place] [address] Care Team Providers Care Candy Depositing Machine Operator Name Role Phone Alexus Stoner ASSISTANT FINANCE MANAGER Primary Care Provider [phone] Encounter Details Date Type Department Care Team (Latest Contact Info) Description 08/21/2024 Travel Social History Tobacco Use Types Packs/Day Years Used Date Smoking Tobacco: Never Smokeless Tobacco: Never Alcohol Use Standard Drinks/Week Comments Never 0 [...] Orientation Straight 04/30/2022 10 :15 AM EDT documented as of this encounter Plan of Treatment Not on file documented as of this encounter Visit Diagnoses Not on filedocumented in this encounter Additional Health Concerns Assessment Noted Time PHQ-9 Depression Total Score: 1 08/21/19 25 3:30 PM EST documented as of this encounter Care Teams Candy Depositing Machine Operator Relationship Specialty Start Date End Date Alexus Stoner FNP [address] [place] [phone] PCP - General Family Medicine 12/11/21 documented as of this encounter
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
--- OUTSIDE RECORDS SUMMARY | 2024-09-02 12:00 | XMS_ITS | Encounter Summary ---
Author Organization [employer] Address [address] [facility] [address] [place] [address] Care Team Providers Care Customer Support Assistant Name Role Phone Alexus Stoner PLANNER Primary Care Provider [phone] Reason for Visit * Reason Onset Date Comments Chart Prep 08/20/2024 Encounter Details Date Type Department Care Team ([facility] st Contact Info) Description 08/20/2024 Telephone [facility] [address] [place] [address] Vivian Dennison MA Chart Prep Social History Tobacco Use Types Packs/Day Years [...] encounter Miscellaneous Notes * Telephone Encounter - Vivian Abrams MA - 08/20/2024 9:06 AM EST Chart Prep Labs: done Images: done Vaccines due: yes Referrals: complete Screenings: pap smear , Tobacco Overdue care gaps: Sbirt, SDOH, PHQ-9, PISQ documented in this encounter Plan of Treatment Not on file documented as of this encounter Visit Diagnoses Not on filedocumented in this encounter Additional Health Concerns Assessment Noted Time PHQ-9 Depression Total Score: 3 04/29/20 23 11:44 AM EDT documented as of this encounter Care Teams Customer Support Assistant Relationship Specialty Start Date End Date Alexus Stoner FNP [address] [place] [address] PCP - General Family Medicine 12/11/21 documented as of this encounter
--- OUTSIDE RECORDS SUMMARY | 2024-09-02 12:00 | XMS_ITS | Encounter Summary ---
Author Organization [employer] Address [address] [facility] [address] [place] [address] Care Team Providers Care Openstack Developer Name Role Phone Alexus Stoner Primary Care Provider [phone] Reason for Visit * Reason Comments Pre-visit Planning Pre visit planning u nable to LVM. Encounter Details Date Type Department Care Team ([facility] Contact Info) Description 08/07/2024 Patient Outreach [facility] [address] [place] [address] Alexus Stoner FNP [address] [place] [address] Pre-visit Planning (Pre visit planning unable to LVM.) Social History Tobacco Use Types Packs/Day Years [...] AM EDT documented as of this encounter Progress Notes * Caitlin Coelho - 08/07/2024 1:41 PM EST ALFONSO Mabry placed outbound call to patient to complete pre-visit planning. No answer at this time. Patient name and were not confirmed. CC unable to leave a message due to [phone] not in service and [phone] the service you attempting use has been restricted or is unavailable. documented in this encounter Plan of Treatment Not on file documented as of this encounter Visit Diagnoses Not on filedocumented in this encounter Additional Health Concerns Assessment Noted Time PHQ-9 Depression Total Score: 3 04/29/20 23 11:44 AM EDT documented as of this encounter Care Teams Openstack Developer Relationship Specialty Start Date End Date Alexus Stoner FNP [address] [place] [address] PCP - General Family Medicine 12/11/21 documented as of this encounter
--- OUTSIDE RECORDS SUMMARY | 2024-09-02 12:00 | XMS_ITS | Encounter Summary ---
Author Organization [employer] Address [address] [place] [address] [address] [place] [address] Care Team Providers Care Housecleaner Name Role Phone Alexus Stoner Primary Care Provider [phone] Reason for Referral * Consultation (Routine) - Authorized Specialty Diagnoses / Procedures Referred By Irena monreal Referred To Contact General Surgery Diagnoses Epidermal inclusion cyst Alexus Stoner FNP [address] [place] [address] Phone: tel: fax: [facility] [address] [place] [address] [address] [place], [place] Phone: tel: fax: Referral ID Status Reason Start Date Expiration Date Visits Requested Visits Authorized [id number] Authorized Specialty Services Required 08/23/2024 08/23/2025 1 1 Encounter Details Date Type Department Care Team (Late st Contact Info) Description 08/21/2024 2:45 PM EST Office Visit [facility] [address] [place] [address] Alexus Stoner FNP [address] [place], [place] [phone] Encounter for routine history and physical examination of adult (Primary Dx); Routine health maintenance; Other hyperlipidemia; Congenital hypertrophy of retinal pigment epithelium; Epidermal inclusion cyst; Dietary counseling; Exercise counseling Social History Tobacco Use Types Packs/Day Years [...] AM EDT documented as of this encounter Last Filed Vital Signs Vital Sign Reading Time Taken Comments Blood Pressure 112/60 08/21/2024 3:21 PM EST Pulse 76 08/21/2024 3:21 PM EST Temperature 36.7 ??C (98 ??F) 08/21/2024 3:21 PM EST Respiratory Rate 20 08/21/2024 3:21 PM EST Oxygen Saturation - - Inhaled Oxygen Concentration - - Weight 104 kg (229 lb 4 oz) 08/21/2024 3:[address] Height 162 cm (5' 3.78 ) 08/21/2024 3:21 PM EST Body Mass Index 39.62 08/21/2024 3:21 PM EST documented in this encounter Progress Notes * Alexus Stoner, [employer] - 08/21/2024 2:45 PM EST Subjective Patient ID: Nathaniel Wagoner is a 39 y.o. female who presents to the office for a physical exam. Interim history: Last PE: Mar 2023 Completing nursing school at [employer] Current concerns: Bump on right buttocks that is firm with black dot in center. No redness, tenderness, drainage. Duration: Months. PMH: Congenital hypertrophy of retinal pigment epithelium: [facility]. PSH - hemorrhoid surgery Jul 2021 Meds - none daily Allergies - NKDA Social history: -Living -lives with and three adolescent children. Reports feels safe and supported with . Pet: Cats -Employment - [employer] (2 jobs), in nursing school at [employer] -Substance Use - no alcohol, denies use of tobacco, opioids, marijuana, or other substances. -Sexual history - sexually active with . Does not desire in the next year. Currently using hormonal IUD for contraception. -Mental health -feeling overwhelmed at times due to multiple responsibilities and roles. Denies SI/HI/thoughts of self harm. Offered to follow-up if interested in BE/therapy referral in the future. Review of Systems Constitutional: Negative for chills and fever. HENT: Negative for congestion and sore throat. Eyes: Negative for visual disturbance. Respiratory: Negative for cough, shortness of breath and wheezing. Cardiovascular: Negative for chest pain and palpitations. Gastrointestinal: Negative for constipation, diarrhea, nausea and vomiting. Skin: Negative for rash. Psychiatric/Behavioral: Negative for suicidal ideas. Objective Visit Vitals BP 112/60 (BP Location: Left arm, Patient Position: Sitting, BP Cuff Size: Large adult) Pulse 76 Temp 98 ??F (36.7 ??C) (Oral) Resp 20 Ht 5' 3.78 (1.62 m) Wt 229 lb 4 oz (104 kg) LMP 06/07/2024 (Approximate) BMI 39.62 kg/m?? Smoking Status Never BSA 2.16 m?? Physical Exam Vitals reviewed. Constitutional: Appearance: Normal appearance. HENT: Head: Normocephalic and atraumatic. Right Ear: Tympanic membrane, ear canal and external ear normal. Left Ear: Tympanic membrane, ear canal and external ear normal. Nose: Nose normal. No congestion. Mouth/Throat: Mouth: Mucous membranes are moist. Pharynx: No oropharyngeal exudate or posterior oropharyngeal erythema. Eyes: General: Right eye: No discharge. Left eye: No discharge. Extraocular Movements: Extraocular movements intact. Pupils: Pupils are equal, round, and reactive to light. Cardiovascular: Rate and Rhythm: Normal rate and regular rhythm. Heart sounds: Normal heart sounds. Pulmonary: Effort: Pulmonary effort is normal. Breath sounds: Normal breath sounds. Abdominal: General: There is no distension. Palpations: Abdomen is soft. Musculoskeletal: General: Normal range of motion. Cervical back: Normal range of motion. No tenderness. Skin: General: Skin is warm. Comments: Upper right buttock: approx 1 cm firm nodule with central black pore. Non-tender. No erythema or drainage. Neurological: Mental Status: She is alert and oriented to person, place, and time. Psychiatric: Mood and Affect: Mood normal. Behavior: Behavior normal. Assessment/Plan Problem List Items Addressed This Visit Other Congenital hypertrophy of retinal pigment epithelium Overview Continue following with [facility] Per opthalmologist, higher risk of colon cancer. Father also w/ hx of colon CA. Completed colonoscopy October 2022. Next colonoscopy due: October 2027. Routine health maintenance Overview ROUTINE SCREENING: Breast CA: Routine mammograms starting at 41 y/o Pap: following with [facility]. Last pap HPV Negative 04/28/2020. Previous HPV neg, NILM 04/11/2017. Colonoscopy: 11/23/2022 at [facility] (+) fam hx. Plan: repeat 5 years (October 2027) due to family history. -Optometry: established [facility] -Last PE: 08/21/24 Relevant Orders Lipid Panel, Standard Hemoglobin A1c TSH with Reflex to Free T4 Comprehensive Metabolic Panel CBC auto differential Chlamydia/N. Gonorrhoeae RNA, TMA, Urogenitial Hepatitis C Viral RNA, Quantitative, Real-Time PCR RPR (Monitor) with Reflex to Titer HIV-1/2 Antigen and Antibodies, Fourth Generation, with Reflexes Hepatitis B Core Antibody, Total Hepatitis B Surface Antibody, Qualitative Hepatitis B surface antigen, EIA Other hyperlipidemia Overview Lab Results Component Value Date CHOL 249 (H) 04/29/2023 TRIG 84 04/29/2023 HDL 48 04/29/2023 LDLCHOLCAL 185 (H) 04/29/2023 -continue lifestyle modification Current Assessment & Plan - Repeat fasting lipid panel Other Visit Diagnoses Encounter for routine history and physical examination of adult - Primary -Cardiopulmonary exam WNL -Encouraged healthy lifestyle habits including routine physical exercise and diet rich in fruits and vegetables Epidermal inclusion cyst Relevant Orders Referral to General Surgery Dietary counseling Exercise counseling Follow up: 1 year for Physical, sooner as needed Immunization History Administered Date(s) Administered DTaP 1986, 1986, 06/29/1987, 08/07/1988, 05/14/1990, 05/21/2012 Hep B, Adolescent or Pediatric 12/28/1998, 02/13/1999, 08/03/2004 Hep B, adult 06/20/1999 Hib (HbOC) 05/04/1988 IPV 1986, 1986, 06/29/1987, 08/07/1988 Influenza Injectable Quadrivalant Preservative Free IIV4 MDCK 04/03/2022 Influenza injectable quadrivalent IIV4 with preservative 04/22/2017, 03/26/2018 Influenza injectable quadrivalent preservative free 04/13/2015, 08/27/2019, 03/27/2021 Influenza, IIV3, injectable 07/05/2014, 07/22/2024 MMR 06/29/1987, 05/14/1990, 04/15/2014 OPV 05/14/1990 Pfizer Covid-19 Vaccine 12+ 08/15/2020, 09/06/2020 Pfizer Covid-19 Vaccine 12+ Bivalent 10/13/2022 Pfizer Covid-19 Vaccine 12+ pardeep-sucrose (Floyd Cap) 08/26/2021 TD (adult), 2 Lf tetanus toxoid, preservative free, adsorbed 12/28/1998 Tdap 12/01/2012, 04/29/2023 documented in this encounter Miscellaneous Notes * Assessment & Plan Note - VIDYA Hay - 08/23/2024 2:02 PM ESTAssociated Problem(s): Other hyperlipidemia - Repeat fasting lipid panel documented in this encounter Plan of Treatment Scheduled Orders Name Type Priority Associated Diagnoses Orde r Schedule Lipid Panel, Standard Lab Routine Routine health maintenance Expected: 08/21/2024 (Approximate), Expires: 08/21/2025 Hemoglobin A1c Lab Routine Routine health maintenance Expected: 08/21/2024 (Approximate), Expires: 08/21/2025 TSH with Reflex to Free T4 Lab Routine Routine health maintenance Expected: 08/21/2024 (Approximate), Expires: 08/21/2025 Comprehensive Metabolic Panel Lab Routine Routine health maintenance Expected: 08/21/2024 (Approximate), Expires: 08/21/2025 Chlamydia/N. Gonorrhoeae RNA, TMA, Urogenitial Microbiology Routine Routine health maintenance Expected: 08/21/2024, Expires: 08/21/2025 Hepatitis C Viral RNA, Quantitative, Real-Time PCR Lab Routine Routine health maintenance Expected: 08/21/2024 (Approximate), Expires: 08/21/2025 RPR (Monitor) with Reflex to??Titer Lab Routine Routine health maintenance Expected: 08/21/2024 (Approximate), Expires: 08/21/2025 HIV-1/2 Antigen and Antibodies, Fourth Generation, with Reflexes Lab Routine Routine health maintenance Expected: 08/21/2024 (Approximate), Expires: 08/21/2025 Hepatitis B Core Antibody, Total Lab Routine Routine health maintenance Expected: 08/21/2024 (Approximate), Expires: 08/21/2025 Hepatitis B Surface Antibody, Qualitative Lab Routine Routine health maintenance Expected: 08/21/2024 (Approximate), Expires: 08/21/2025 Hepatitis B surface antigen, EIA Lab Routine Routine health maintenance Expected: 08/21/2024 (Approximate), Expires: 08/21/2025 Scheduled Referrals Name Type Priority Associated Diagnoses Orde r Schedule Referral to General Surgery Outpatient Referral Routine Epidermal inclusion cyst Expected: 08/23/2024 (Approximate), Expires: 08/23/2025 documented as of this encounter Procedures Procedure Name Priority Date/Time Associated Diagnosis Comments CBC WITH AUTO DIFFERENTIAL Routine 09/02/2024 10:14 AM EST Routine health maintenance documented in this encounter Results * CBC auto differential (09/02/2024 10:14 AM EST) White Blood Count 6.7 4.8 - 10.8 X10*3/uL [facility] Red Blood Count 4.49 4.20 - 5.50 X10*6/uL [facility] Hemoglobin 12.4 12.0 - 16.0 g/dl [facility] Hematocrit 38.3 37.0 - 47.0 % [facility] Mean Corpuscular Volume 85.3 80.0 - 98.0 fL [facility] Mean Corpuscular Hemoglobin 27.6 27.0 - 33.0 pg [facility] Mean Corpuscular HGB Conc 32.4 31.0 - 35.0 g/dl [facility] Red Cell Distribution Width 13.8 11.0 - 16.0 % [facility] Platelet Count 239 160 - 400 X10*3/uL [facility] Mean Platelet Volume 11.2 9.4 - 12.3 fL [facility] Neutrophils Percent Auto 52.5 45 - 73 % [facility] Imm Gran Pct Auto 0.1 0.0 - 0.4 % [facility] Lymphocytes Percent Auto 38.9 20 - 40 % [facility] Monocytes Percent Auto 5.1 2 - 11 % [facility] Eosinophils Percent Auto 2.7 0 - 4 % [facility] Basophils Percent Auto 0.7 0 - 2 % [facility] NRBC Pct Auto 0.0 0.0 - 0.2 /100WBC [facility] Neutrophils Absolute Auto 3.5 2.0 - 8.3 x10*3/uL [facility] Imm Gran Abs Auto 0.01 0.00 - 0.03 X10*3/uL [facility] Lymphocytes Absolute Auto 2.6 1.2 - 4.9 X10*3/uL [facility] Monocytes Absolute Auto 0.3 0.1 - 1.2 X10*3/uL [facility] Eosinophils Absolute Auto 0.2 0.0 - 0.4 X10*3/uL [facility] Basophils Absolute Auto 0.1 0.0 - 0.2 X10*3/uL [facility] NRBC Abs Auto 0.000 0.0 - 0.012 X10*3/uL [facility] Blood Venous blood specimen / Unknown 09/02/2024 10:14 AM EST 09/02/2024 11:25 AM EST us Alexus DASILVA LAB BLOOD ORDERABLES Final Res ult [facility] [address] [place] [address] [phone] documented in this encounter Visit Diagnoses Diagnosis Encounter for routine history and physical examination of adult- Primary Routine health maintenance Unspecified examination Other hyperlipidemia Congenital hypertrophy of retinal pigment epithelium Dystrophies primarily involving the retinal pigment epithelium Epidermal inclusion cyst Sebaceous cyst Dietary counseling Dietary surveillance and counseling Exercise counseling documented in this encounter Additional Health Concerns Assessment Noted Time PHQ-9 Depression Total Score: 1 08/21/19 25 3:30 PM EST documented as of this encounter Care Teams Housecleaner Relationship Specialty Start Date End Date Alexus Stoner FNP [address] [place] [address] PCP - General Family Medicine 12/11/21 documented as of this encounter
[2024-09-02 12:11] LABS: Estimated Average Glucose 111 mg/dL; Hemoglobin A1C 118.6896 umol/L; Hemoglobin A1c % 5.5 % (<6.0); Total Hemoglobin (HGBA1C) 3257.4389 umol/L
[2024-09-02 12:27] LABS: Alanine Aminotransferase 16 U/L (0-31); Albumin Level 4.3 g/dL (3.5-5.0); Alkaline Phosphatase 90 U/L (39-117); Anion Gap 10 (12-20); Aspartate Amino Transferase 21 U/L (5-31); Bilirubin Total 0.3 mg/dL (0.0-1.0); Blood Urea Nitrogen 13 mg/dL (9-16); Calcium 9.5 mg/dL (8.4-10.2); Carbon Dioxide 26 mmol/L (22-29); Chloride 109 mmol/L (96-108); Cholesterol 240 mg/dL (<200); Estimated Glomerular Filt Rate > 60; Glucose Random 87 mg/dL (60-115); HDL Cholesterol 47 mg/dL (>40); LDL Cholesterol Calculated 179 mg/dL (<100); Potassium 4.3 mmol/L (3.3-5.1); Sodium 141 mmol/L (135-145); Total Protein 8.1 g/dL (6.5-8.0); Triglycerides 73 mg/dL (<150)
[2024-09-02 12:33] LABS: HBS Num1 20.75 mIU/mL (0-7.99); HBc Num1 0.15 S/CO (0.00-0.79); HBsAGNum1 0.33 S/CO (0.00-0.99); HIV AB/AG Nonreactive (Nonreactive); HIV Num 1 0.07 S/CO (0.00-0.99); Hepatitis B Core Antibody Nonreactive (Nonreactive); Hepatitis B Surface Antigen Negative (Negative); ~Hepatitis B Surface Antibody REACTIVE (Nonreactive)
[2024-09-02 12:35] LABS: TSH reflex Free T4 1.03 uIU/mL (0.32-4.0)
[2024-09-03 11:58] LABS: RPR Rapid Plasma Reagin NON-REACTIVE (NON-REACTIVE)
[2024-09-03 15:03] LABS: HCV Log PCR <1.18 NOT DETECTED Log IU/mL (NOT DETECTED); HepC Viral Load <15 NOT DETECTED IU/mL (NOT DETECTED)
[2024-09-03 18:18] LABS: CT PCR NOT DETECTED (Not Detect.); NG PCR NOT DETECTED (Not Detect.)
== END 2024-09-02 10:11 | disposition home or self-care (01) ==
LOC: HO.HHCL 10:10
PROVIDERS: Visit Provider Registered Nurse
DX: Z00.00 Encounter for general adult medical examination without abnormal findings (principal); Z13.1 Encounter for screening for diabetes mellitus; Z13.6 Encounter for screening for cardiovascular disorders
CPT/HCPCS: 80053; 80061; 83036; 84443; 85025; 86592; 86704; 86706; 87340; 87389; 87491; 87522; 87591

== ENCOUNTER 2025-04-12 11:24 | Emergency (ER) | payer OTHER, SELFPAY ==
--- NOTE | ~2025-04-12 | CT_ITS ---
CLINICAL HISTORY: head injury, pain CT head without contrast Comparison: None provided Findings: No intra-axial mass, midline shift, hydrocephalus, or acute hemorrhage. No significant atrophy-like change or white matter disease. There is no sinus or mastoid fluid. The orbits are within normal limits. No skull fracture. IMPRESSION: 1. No acute intracranial findings. This document has been electronically signed by: Oscar Garnett DO on 04/12/2025 12:54:56
--- NOTE | ~2025-04-12 | XR_ITS ---
CLINICAL HISTORY: pain, injury 2 view right forearm Comparison: None provided Findings: No fractures or dislocations. No joint effusion. No significant arthritic change. No radiopaque foreign body. Posterior soft tissue swelling. IMPRESSION: No acute osseous abnormality. This document has been electronically signed by: Oscar Garnett DO on 04/12/2025 12:34:19
--- NOTE | ~2025-04-12 | CT_ITS ---
CLINICAL HISTORY: head injury, pain CT cervical spine without contrast Comparison: CT/SR - HEAD HEAD_CSPINE (ADULT) - 04/12/25 11:39 EDT Findings: Vertebral alignment is within normal limits. No significant degenerative change. No acute fractures or dislocations. Visualized intracranial contents are unremarkable. No cervical fluid collections or masses. No consolidation or effusion at the lung apices. IMPRESSION: No acute findings. This document has been electronically signed by: Oscar Garnett DO on 04/12/2025 12:58:03
[2025-04-12 11:26] VITALS: BP 136/67; PULSE 67; RESP 16; TEMP 36.4; O2SAT 100; BMI 35.8
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
[2025-04-12 13:11] VITALS: BP 125/60; PULSE 54; RESP 16; TEMP 36.2; O2SAT 100
--- OUTSIDE RECORDS SUMMARY | 2025-04-12 13:21 | XMS_ITS | Encounter Summary ---
Author Organization [employer] Address [address] [place] [address] 7 [place] [address] Care Team Providers Care Check Processor Name Role Phone Alexus Stoner Primary Care Provider [phone] Reason for Visit * Reason Onset Date Comments Nurse Triage 01/06/2024 Encounter Details Date Type Department Care Team ([facility] st Contact Info) Description 01/06/2024 Telephone [facility] [address] [place], [place] [id number] Alexus Stoner FNP [address] [place] [address] Nurse Triage Social History Tobacco Use Types [...] hours later. Did not have ED care.Insurance [employer] inactive at time of call. Patient reports [...] documented as of this encounter Care Teams Check Processor Relationship Specialty Start Date End Date Alexus Stoner FNP [address] [place] [phone] PCP - General Family Medicine 12/11/21 documented as of this encounter
--- OUTSIDE RECORDS SUMMARY | 2025-04-12 13:21 | XMS_ITS | Encounter Summary ---
Author Organization [employer] Address [address] [facility] [address] [place] [address] Care Team Providers Care Vacuum Extractor Operator Name Role Phone Alexus Stoner [employer] S[employer] ASSOCIATE Primary Care Provider [phone] Encounter Details Date Type Department Care Team ([facility] st Contact Info) Description 03/26/2025 Orders Only [facility] [address] [place] [address] Sharon Wong Social History Tobacco Use Types Packs/Day Years [...] on file documented as of this encounter Procedures Procedure Name Priority Date/Time Associated Diagnosis Comments HM PAP/HPV Routine 04/29/2020 12:00 AM EDT documented in this encounter Results * HM PAP/HPV (04/29/2020 12:00 AM EDT) us Historical Provider HEALTH MAINTENANCE Final Result documented in this encounter Visit Diagnoses Not on filedocumented in this encounter Additional Health Concerns Assessment Noted Time PHQ-9 Depression Total Score: 1 08/21/19 25 3:30 PM EST documented as of this encounter Care Teams Vacuum Extractor Operator Relationship Specialty Start Date End Date Alexus Stoner FNP [address] [place] [address] PCP - General Family Medicine 12/11/21 documented as of this encounter
--- OUTSIDE RECORDS SUMMARY | 2025-04-12 13:21 | XMS_ITS | Clinical Summary ---
Author Organization [employer] Address [address] [facility] 7[address] [place] [address] Care Team Providers Care Vault Mechanic Name Role Phone Alexus Stoner VIDYA Primary Care Provider [phone] Allergies No known active allergies Medications rosuvastatin (Crestor) 10 MG tabletIndications:O ther hyperlipidemia Take 1 tablet (10 mg) by mouth at bedtime. (Cholestero l) 90 tablet 1 5 09/16/19 26 Active Active Problems Problem Noted Date Diagnosed Date [...] starting at 41 y/o Pap: following with [facility]. Last pap HPV Negative 04/28/2020. Previous HPV neg, NILM 04/11/2017. Colonoscopy: 11/23/2022 at [facility] (+) fam hx. Plan: repeat 5 years (October 2027) due to family history. -Optometry: established with [facility] -Last PE: 08/21/24 Resolved Problems Problem Noted Date Diagnosed Date Resolved Date Obesity 11/16/2011 08/21/2024 Encounters Date Type Department Care Team Description 04/12/2025 Telephone [facility] [address] [place] [address] Alexus Stoner FNP Nurse Triage 03/26/2025 Orders Only [facility] [address] [place] [address] Sharon Wong from Last 3 Months Immunizations Immunization Administration Dates Next Due DTaP 05/21/2012, 0,08/07/1988,1986,1986,1986 Hep B, Adolescent or Pediatric 08/03/2004,1998,12/28/1998 Hep B, adult 06/20/1999 Hib ([facility]) 05/04/1988 IPV 08/07/1988, 7,1986,1986 Influenza Injectable Quadriv alant Preservative Free IIV4 MDCK 04/03/2022 Influenza injectable quadriv alent IIV4 with preservative 03/26/2018,04/22/2017 Influenza injectable quadriv alent preservative free 03/27/2021,08/27/2019,04/13/2015 Influenza, IIV3, injectable 07/22/2024, 5 MMR 04/15/2014,05/14/1990,06/29/1987 OPV, Trivalent 05/14/1990 TD (adult), 2 Lf tetanus tox [...] is your housing situation today? I have sherinshe garcia 08/21/[address] you [...] Q2 Not on file 08/21/2024 Comments Unknown Intention Date Recorded No desire to become (finding) 0 08/21/2024 Sex and Gender Information Value Date Recorded Sex Assigned at Female 04/30/2022 10:15 AM EDT Legal Sex Female 10:15 AM EDT Gender Identity Female 04/30/2022 10:15 AM EDT Sexual Orientation Straight 04/30/2022 10 :15 AM EDT Last Filed Vital Signs Vital Sign Reading Time Taken Comments Blood Pressure 112/60 08/21/2024 3:21 PM EST Pulse 76 08/21/2024 3:21 PM EST Temperature 36.7 C (98 F) 08/21/2024 3:21 PM EST Respiratory Rate 20 08/21/2024 3:21 PM EST Oxygen Saturation 98% 06/19/2023 11:33 AM EST Inhaled Oxygen Concentration - - Weight 104 kg (229 lb 4 oz) 08/21/2024 3:[address] Height 162 cm (5' 3.78 ) 08/21/2024 3:21 PM EST Body Mass Index 39.62 08/21/2024 3:21 PM EST Plan of Treatment Health Maintenance Due Date Last Done Comments Disability Screening 1986 HPV Vaccines (1 - 3-dose series) 2001 COVID-19 Vaccine (2024- season) 2025 10/13/2022, 08/26/2021, 09/06/2020, Additional history exists Influenza Vaccine (#1) 2025 , 04/03/2022, 03/27/2021, Additional history exists Cervical Cancer Screening 04/29/2025 HPV/Cotest 04/29/2025 04/28/2020, 04/28/2020 Pap Smear 04/29/2025 04/29/2020, 04/11/2017 Alcohol/Substance Use Screening 08/21/2025 08/21/2024 Depression Screening 08/21/2025 08/21/2024, 08/21/19 25 SDOH Screening 08/21/2025 08/21/2024 Family Planning (PISQ) 08/23/2025 08/23/2024 Tobacco Screening [...] 02/13/1999, Additional history exists HIV Screening Completed 09/02/2024, 04/29/2023 Hepatitis C Screening Completed 09/02/2024, 023 Hepatitis A Vaccines Aged Out No long er eligible based on patient's age to complete this topic Meningococcal B Vaccine Aged Out No l onger eligible based on patient's age to complete this topic Meningococcal Vaccine Aged Out No be jolie eligible based on patient's age to complete this topic Pneumococcal Vaccine: Pediatrics (0 to 5 Years) and At-Risk Patients (6 to 49) Years Aged Out No longer eligible based on patient's age to complete this topic RSV under 20 months Aged Out No longe r eligible based on patient's age to complete this topic Rotavirus Vaccines Aged Out No longer eligible based on patient's age to complete this topic Procedures Procedure Name Priority Date/Time Associated Diagnosis Comments HEPATITIS C VIRAL RNA, QUANTITATIVE, REAL-TIME PCR Routine 09/02/2024 10:14 AM EST Routine health maintenance HIV 1/2 ANTIGEN/ANTIBODY, FOURTH GENERATION W/RFL Routine 09/02/2024 10:14 AM EST Routine health maintenance HM PAP/HPV Routine 04/29/2020 12:00 AM EDT ZZZ HISTORICAL HPV E6/E7 RFLX POPPY 16 18/45 Routine 04/28/2020 4:59 PM EDT from Last 3 Months or Most Recently Relevant to Health Maintenance Results * Hepatitis C Viral RNA, Quantitative, Real-Time PCR (09/02/2024 10:14 AM EST) Hepatitis C Viral Load <15 NOT DETECTED NOT DETECTED IU/mL [facility] HCV Log PCR <1.18 NOT DETECTED NOT DETECTED Log IU/mL [facility] Comment:For additional infor consuelo, please refer tohttp://education.ItrybeforeIbuy/faq/UDJ02x9(This link is being provided for informational/educational purposes only.)THIS TEST WAS PERFORMED AT:[facility] [place] [id number] JIMENEZ MD Blood 09/02/2024 10:1 4 AM EST 09/02/2024 11:25 AM EST Alexus Stoner [facility] BLOOD ORDERABLES Final Res ult Performing Organization Address [facility] Co de Phone Number [facility] [address] [place] [phone] * HIV-1/2 Antigen and Antibodies, Fourth Generation, with Reflexes (09/02/2024 10:14 AM EST) HIV AB/AG Nonreactive Nonreactive [facility] Comment:HIV-1 p24 Ag and/or HIV-1/HIV-2 Ab not detected.A test result that is nonreactive does not exclude thepossibility of exposure to or infection with HIV-1 and/orHIV-2. Nonreactive results in this assay for individualswith prior exposure to HIV-1 and/or HIV-2 may be due toantigen and antibody levels that are below the limit ofdetection of this assay.The [employer] HIV Ag/Ab Combo assay result andsupplemental assay results should be interpreted inconjunction with the patient's clinical presentation,history and other laboratory results. If the results areinconsistent with clinical evidence, additional testing issuggested to confirm the result. Blood Venous blood specimen / Unknown 09/02/2024 10:14 AM EST 09/02/2024 11:25 AM EST Alexus Stoner [facility] BLOOD ORDERABLES Final Res ult Performing Organization Address [facility] Co de Phone Number [facility] [address] [place] [address] [phone] * HM PAP/HPV (04/29/2020 12:00 AM EDT) Historical Provider HEALTH MAINTENANCE Final Result * HPV E6/E7 RFLX POPPY 16 18/45 (04/28/2020 4:59 PM EDT) HPV mRNA E6/E7 rflx Not Detected Not Detected [facility] Comment: This test was performed using the APTIMA HPV Assay ([employer] This assay detects E6/E7 viral messenger RNA (mRNA) from 14 high-risk HPV types (16,18,31,33,35,39,45,51,52,56,58,59,66,68). The analytical performance characteristics of this assay have been determined by [employer]. The modifications have not been cleared or approved by the FDA. This assay has been validated pursuant to the CLIA regulations and is used for clinical purposes. THIS TEST WAS PERFORMED AT: [facility] [address] [place] [address] [address] [address] ALY JIMENEZ MD 04/28/2020 4:59 PM EDT us Historical Provider HISTORICAL/NON ORDERABLE LABS Final Result [facility] [address] from Last 3 Months or Most Recently Relevant to Health Maintenance [place] [address] [place] [address] Care Teams Vault Mechanic Relationship Specialty Start Date End Date Alexus Stoner FNP [address] [place] [address] PCP - General Family Medicine 12/11/21
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
== END 2025-04-12 13:26 | disposition home or self-care (01) ==
LOC: HO.ED 13:19
PROVIDERS: Emergency Provider Emergency Medicine
DX: M79.631 Pain in right forearm (principal); R51.9 Headache, unspecified; V47.5XXA Car driver injured in collision with fixed or stationary object in traffic accident, initial encounter; Y93.89 Activity, other specified; Y92.488 Other paved roadways as the place of occurrence of the external cause; Y99.8 Other external cause status
CPT/HCPCS: 70450; 72125; 73090; 99281; 99284

== ENCOUNTER → 2025-04-12 11:28 | Outpatient (BNV) | payer OTHER, SELFPAY | PROVIDERS: Visit Provider Family Medicine | DX: M54.2 Cervicalgia (principal); S09.90XA Unspecified injury of head, initial encounter; M79.631 Pain in right forearm | CPT/HCPCS: 70450; 72125; 73090 ==

== ENCOUNTER 2025-05-21 08:57 | Outpatient (REF) | payer SELFPAY ==
--- OUTSIDE RECORDS SUMMARY | 2025-05-21 09:11 | XMS_ITS | Encounter Summary ---
Author Organization [employer] Address [address] [place] [address] 7 [place] [address] Care Team Providers Care Quill Skinner Name Role Phone Alexus Stoner Primary Care Provider [phone] Reason for Visit * Reason Onset Date Comments Transition Of Care (Tcm) 05/17/2025 Encounter Details Date Type Department Care Team ([facility] Contact Info) Description 05/17/2025 Telephone [facility] MED & PEDS [address] [place], [place] [phone] Alexus Stoner FNP [address] [place] [address] Transition Of Care (Tcm) Social History Tobacco Use Types Packs/Day Years [...] encounter Miscellaneous Notes * Telephone Encounter - Carina Hernandez MA - 05/17/2025 10:39 AM EST Outgoing call, LM-V; to coming in for fasting blood work before PCP appointment. documented in this encounter Plan of Treatment Upcoming Encounters Date Type Department Care Team ([facility] Contact Info) Description 05/31/2025 10:15 AM EST Office Visit [facility] MED & PEDS [address] [place] [address] Alexus Stoner FNP [address] [place] [address] documented as of this encounter Visit Diagnoses Not on filedocumented in this encounter Additional Health Concerns Assessment Noted Time PHQ-9 Depression Total Score: 1 08/21/19 25 3:30 PM EST documented as of this encounter Care Teams Quill Skinner Relationship Specialty Start Date End Date Alexus Stoner FNP [address] [place] [address] PCP - General Family Medicine 12/11/21 documented as of this encounter
--- OUTSIDE RECORDS SUMMARY | 2025-05-21 09:11 | XMS_ITS | Clinical Summary ---
Author Organization [employer] Address [address] [facility] 7t [place] [address] Care Team Providers Care Critical Care Nurse Name Role Phone Alexus Stoner VIDYA Primary Care Provider [phone] Allergies No known active allergies Medications rosuvastatin [...] starting at 41 y/o Pap: following with [facility]. Last pap HPV Negative 04/28/2020. Previous HPV neg, NILM 04/11/2017. Colonoscopy: 11/23/2022 at [facility] (+) fam hx. Plan: repeat 5 years (October 2027) due to family history. -Optometry: established with [facility] -Last PE: 08/21/24 Resolved Problems Problem Noted Date Diagnosed Date Resolved Date Obesity 11/16/2011 08/21/2024 Encounters Date Type Department Care Team Description 05/19/2025 Telephone [facility] [address] [place] [address] Alexus Stoner FNP Transition Of Care (Tcm) 05/17/2025 Telephone [facility] MED & PEDS [address] [place], [place] [phone] Alexus Stoenr FNP Transition Of Care (Tcm) 04/12/2025 Telephone [facility] [address] [place], [place] [phone] Alexus Stoner FNP Nurse Triage 03/26/2025 Orders Only [facility] MED & PEDS [address] [place], [place] [phone] Sharon Wong from Last 3 Months Immunizations Immunization Administration Dates Next Due DTaP 05/21/2012, 0,08/07/1988,1986,1986,1986 Hep B, Adolescent or Pediatric 08/03/2004,1998,12/28/1998 Hep B, adult 06/20/1999 Hib ([facility]) 05/04/1988 IPV 08/07/1988, 7,1986,1986 Influenza Injectable Quadriv [...] 08/21/2024 3:21 PM EST Plan of Treatment Upcoming Encounters Date Type Department Care Team (Late st Contact Info) Description 05/31/2025 10:15 AM EST Office Visit [facility]S [address] [place] [address] Alexus Stoner, CONVENTIONAL MORTGAGE UNDERWRITER [address] [place] [address] Health Maintenance Due Date Last Done Comments Disability Screening 1986 HPV Vaccines (1 - 3-dose series) 2001 COVID-19 Vaccine ( season) 2025 10/13/2022, 08/26/2021, [...] Quantitative, Real-Time PCR (09/02/2024 10:14 AM EST) Pathologist [facility] Hepatitis C Viral Load <15 NOT DETECTED NOT DETECTED IU/mL [facility] HCV Log PCR <1.18 NOT DETECTED NOT DETECTED Log IU/mL [facility] Comment:For additional infor consuelo, please refer tohttp://education.[employer]/faq/DOG77z5(This link is being provided for informational/educational purposes only.)THIS TEST WAS PERFORMED AT:[facility] [place] [id number] JIMENEZ MD Blood 09/02/2024 10:1 4 AM EST 09/02/2024 11:25 AM EST Alexus Stoner CONVENTIONAL MORTGAGE UNDERWRITER LAB BLOOD ORDERABLES Final Res ult [facility] [address] [place] [address] [phone] * HIV-1/2 Antigen and Antibodies, Fourth Generation, with Reflexes (09/02/2024 10:14 AM EST) [facility] HIV AB/AG Nonreactive Nonreactive [facility] Comment:HIV-1 p24 Ag and/or HIV-1/HIV-2 Ab not detected.A test result that is nonreactive does not exclude thepossibility of exposure to or infection with HIV-1 and/orHIV-2. Nonreactive results in this assay for individualswith prior exposure to HIV-1 and/or HIV-2 may be due toantigen and antibody levels that are below the limit ofdetection of this assay.The [facility] HIV Ag/Ab Combo assay result andsupplemental assay results should be interpreted inconjunction with the patient's clinical presentation,history and other laboratory results. If the results areinconsistent with clinical evidence, additional testing issuggested to confirm the result. Blood Venous blood specimen / Unknown 09/02/2024 10:14 AM EST 09/02/2024 11:25 AM EST Alexus Stoner CONVENTIONAL MORTGAGE UNDERWRITER LAB BLOOD ORDERABLES Final Res ult [facility] [address] [place] [address] [phone] * HM PAP/HPV (04/29/2020 12:00 AM EDT) us Historical Provider HEALTH MAINTENANCE Final Result * HPV E6/E7 RFLX POPPY 16 18/45 (04/28/2020 4:59 PM EDT) HPV mRNA E6/E7 rflx Not Detected Not Detected [facility] Comment: This test was performed using the APTIMA HPV Assay ([employer] This assay detects E6/E7 viral messenger RNA (mRNA) from 14 high-risk HPV types (16,18,31,33,35,39,45,51,52,56,58,59,66,68). The analytical performance characteristics of this assay have been determined by [employer]. The modifications have not been cleared or approved by the FDA. This assay has been validated pursuant to the CLIA regulations and is used for clinical purposes. THIS TEST WAS PERFORMED AT: [facility] [address] [facility] [address] [address] ALY JIMENEZ MD 04/28/2020 4:59 PM EDT us Historical Provider HISTORICAL/NON ORDERABLE LABS Final Result [facility] [address] from Last 3 Months or Most Recently Relevant to Health Maintenance Insurance [facility] Care Teams Critical Care Nurse Relationship Specialty Start Date End Date Alexus Stoner FNP [address] [place] [address] PCP - General Family Medicine 12/11/21
--- OUTSIDE RECORDS SUMMARY | 2025-05-21 09:11 | XMS_ITS | Encounter Summary ---
Author Organization [employer] Address [address] [facility] 7t [place] [address] Care Team Providers Care Occupational Nurse Name Role Phone Alexus Stoner ONLINE MARKETING ANALYST Primary Care Provider [phone] Encounter Details Date Type Department Care Team ([facility] st Contact Info) Description 03/26/2025 Orders Only [facility] MED & PEDS [address] [place] [address] Sharon Wong Social History Tobacco Use Types [...] as of this encounter Plan of Treatment Upcoming Encounters Date Type Department Care Team ([facility] Contact Info) Description 05/31/2025 10:15 AM EST Office Visit [facility] MED & PEDS [address] [place] [address] Alexus Stoner FNP [address] [place] [address] documented as of this encounter Procedures Procedure [...] documented as of this encounter Care Teams Occupational Nurse Relationship Specialty Start Date End Date Alexus Stoner FNP [address] [place] [address] PCP - General Family Medicine 12/11/21 documented as of this encounter
--- OUTSIDE RECORDS SUMMARY | 2025-05-21 09:11 | XMS_ITS | Encounter Summary ---
Author Organization [employer] Address [address] [facility] 7 [place] [address] Care Team Providers Care Paper Roll Machine Operator Name Role Phone Alexus Stoner Primary Care Provider [phone] Reason for Visit * Reason Onset Date Comments Transition Of Care (Tcm) 05/19/2025 Encounter Details Date Type Department Care Team ([facility] st Contact Info) Description 05/19/[address] [facility] [address] [place] [address] Alexus Stoner FNP [address] [place] [address] Transition Of Care (Tcm) Social History Tobacco [...] Telephone Encounter - Carina Hernandez MA - 05/19/2025 12:12 PM EST Informed to coming fasting for blood work before appointment on 05/31 with PCP. Agreed with plan. * Telephone Encounter - Carina Hernandez MA - 05/19/2025 12:11 PM EST ----- Message from Alexus Stoner sent at 05/16/2025 3:27 PM EST ----- Please ask her to complete repeat lab work for cholesterol and liver levels fasting 1 week before our upcoming appointment - thanks! documented in this encounter Plan of Treatment Upcoming Encounters Date Type Department Care Team ([facility] st Contact Info) Description 05/31/2025 10:15 AM EST Office Visit [facility] MED & PEDS [address] [facility] [place] [address] Alexus Stoner FNP [address] [place] [address] documented as of this encounter Visit Diagnoses Not on filedocumented in this encounter Additional Health Concerns Assessment Noted Time PHQ-9 Depression Total Score: 1 08/21/19 25 3:30 PM EST documented as of this encounter Care Teams Paper Roll Machine Operator Relationship Specialty Start Date End Date Alexus Stoner FNP [address] [place] [address] PCP - General Family Medicine 12/11/21 documented as of this encounter
--- OUTSIDE RECORDS SUMMARY | 2025-05-21 09:11 | XMS_ITS | Encounter Summary ---
Author Organization [employer] Address [address] [place] [address] 7 [place] [address] Care Team Providers Care Layboy Operator Name Role Phone Alexus Stoner Primary Care Provider [phone] Reason for Visit * Reason Onset Date Comments Nurse Triage 01/06/2024 Encounter Details Date Type Department Care Team ([facility] st Contact Info) Description 01/06/2024 Telephone [facility] MED & PEDS [address] [place], [place] [phone] Alexus Stoner FNP [address] [place] [address] Nurse Triage Social History Tobacco Use Types [...] hours later. Did not have ED care.Insurance leemail inactive at time of call. Patient reports [...] Upcoming Encounters Date Type Department Care Team ([facility] st Contact Info) Description 05/31/2025 10:15 AM EST Office [facility] MED & PEDS [address] [place], [place] [phone] Alexus Stoner FNP [address] [place] [address] documented as of this encounter Visit Diagnoses Not on filedocumented in this encounter Additional Health Concerns Assessment Noted Time PHQ-9 Depression Total Score: 3 04/29/20 23 11:44 AM EDT documented as of this encounter Care Teams Layboy Operator Relationship Specialty Start Date End Date Alexus Stoner FNP [address] [place] [address] PCP - General Family Medicine 12/11/21 documented as of this encounter
[2025-05-21 14:53] LABS: Alanine Aminotransferase 13 U/L (0-31); Albumin Level 4.4 g/dL (3.5-5.0); Alkaline Phosphatase 90 U/L (39-117); Aspartate Amino Transferase 24 U/L (5-31); Cholesterol 231 mg/dL (<200); HDL Cholesterol 54 mg/dL (>40); Total Protein 7.6 g/dL (6.5-8.0); Triglycerides 94 mg/dL (<150)
== END 2025-05-21 08:58 | disposition home or self-care (01) ==
LOC: HO.CHCLDS 08:57
PROVIDERS: Visit Provider Registered Nurse
DX: E78.49 Other hyperlipidemia (principal)
CPT/HCPCS: 36415; 80061; 80076